=== PATIENT | male | born 1970 | race Caucasian/White ===

== ENCOUNTER 2018-04-18 14:49 | Outpatient (CLI) | payer OTHER | END 2018-04-18 14:50 | disposition home or self-care (01) | LOC: SC 14:49 | PROVIDERS: ATTEND Internal Medicine Pulmonary Disease | DX: G47.33 Obstructive sleep apnea (adult) (pediatric) (principal) | CPT/HCPCS: 99203; 99212 ==

== ENCOUNTER 2018-06-23 12:46 | Outpatient (CLI) | payer OTHER | END 2018-06-23 12:47 | disposition home or self-care (01) | LOC: SC 12:46 | PROVIDERS: ATTEND Nurse Practitioner Family | DX: G47.33 Obstructive sleep apnea (adult) (pediatric) (principal) | CPT/HCPCS: 99212; 99214 ==

== ENCOUNTER 2018-08-04 14:35 | Outpatient (CLI) | payer OTHER ==
--- NOTE | 2018-08-08 16:23 | PROCEDURE REPORT ---
Hospitalist Procedure Note - Procedure Note Procedure Note: August 04, 2018 Procedure: Roverto protocol stress test Indication: Assessment of chest pain Clinical history: morbidly obese 48-year-old [place] male whose risk factors for heart disease include family history and male sex with borderline hyperlipidemia. He is an ex-smoker who smoked 20 years and quit November 2017. He weighs 255 pounds and is 5 foot 10 inches tall. He is on no medications. He has been having atypical chest pain that is central, substernal, but not associated with rest or stress particularly. There is no nausea, diaphoresis, palpitations, pedal edema, or change in exercise endurance. He walks 30 minutes a night on a treadmill. Procedure: After signing informed consent, the patient performed an exercise treadmill study using a Roverto protocol completing 10 minutes and a estimated workload of 11.79 metabolic equivalents. The test was terminated due to completion of goals and fatigue. He had no chest pain during the stress test. The heart rate was 90 bpm at baseline and increased to 176 at peak exercise which was 101% of maximum predicted heart rate. Resting blood pressure was 128/76 and increased to 188/80 during max stress which was a normal hypertensive response. The patient did not develop any symptoms other than shortness of breath, mild leg fatigue. The resting EKG demonstrates normal sinus rhythm with nonspecific ST-T wave changes in inferolateral leads with T wave flattening. During stress there were no diagnostic criteria met for ischemia. At rest there was no ectopy. Recovery was slightly delayed. At 2 minutes and 15 seconds he was still 132 heartbeats. At 4 minutes and 59 seconds he was down to 113. And at 6 minutes 59 seconds he was still mildly elevated at 113 with a blood pressure 162/70. Findings: The overall quality of the study was good. Mild baseline artifact was present on EKG during stress. Good effort was made by the patient. Impression: No diagnostic criteria for ischemia was met during this treadmill study of a patient who is able to achieve 10 minutes on a Roverto protocol.
== END 2018-08-04 14:36 | disposition home or self-care (01) ==
LOC: DI 14:35
PROVIDERS: ATTEND Physician Assistant
DX: R07.9 Chest pain, unspecified (principal); E66.01 Morbid (severe) obesity due to excess calories; Z87.891 Personal history of nicotine dependence
CPT/HCPCS: 93017

== ENCOUNTER 2021-08-19 15:31 | Outpatient (CLI) | payer OTHER ==
--- NOTE | 2021-08-19 16:11 | SLEEP CARE CONSULTATION ---
Information from patient questionnaire entered by Benjamin Talley MA. I have reviewed and concur with the information entered by Benjamin Talley MA. This document represents the service I personally performed and the decisions made by , Umu Jarrett ARNP. History of Present Illness Service Date and Time: 08/19/2021 1531 Reason for Visit: New patient (LAST SEEN 06/2018), Previously diagnosed sleep apnea, sleep apnea on CPAP therapy, Re-establish care Chief Complaint: reports: Unrefreshed sleep, Snoring, Observed pauses in breathing, Fatigue, Frequent awakenings at night, Other (update supplies) Date of Onset: 20+ years Usual bedtime: 9 PM Time it takes to fall asleep: 30 mins to 1 hr Snores at night: Yes Observed to quit breathing while asleep: Yes Sleeps alone due to snoring: No Number of times waking at night: 2-3 times Reasons for waking at night: reports: Snoring, Gasping for air, Other ( waking him up due to stopping breathing) Toss, Turn, or Twitch while sleeping: Yes Recalls having dreams: No Feels refreshed in the morning: No Morning headache: No Sleepy or fatigued during the day: Yes Ever fallen asleep while driving: No Takes day naps: No Dreams during day naps: No Prior sleep studies: Yes Year and Where: 2010 [facility] Additional HPI information: FACUNDO MORGAN was previously diagnosed to have mild, AHI 12.8, obstructive sleep apnea-hypopnea syndrome and returns today to re-establish care for CPAP therapy. He stopped using his device in February 2021 due to the recall on his CPAP machine. - Parasomnia Symptoms Ever been unable to move upon waking from sleep: No Walks in sleep: No Talks in sleep: Yes Ever acted out dreams in sleep: Yes Ever felt weak in the knees when startled or emotional: No Bothered by creepy, crawly, restless sensations in legs: No Problems with memory or concentration: Yes CPAP Compliance Data - Data Reviewed with Patient Average duration of nightly device use: 6 hours 22 mins Compliance rate %: 12.8 Current pressure setting (cmH2O): 5-12 Average residual AHI: 5.8 Central apnea: 0.6 Obstructive apnea: 1.5 Hypopnea: 3.7 Average large leak: 35 mins 36 secs Compliance data discussion: He was using [facility] but has been transferred to [facility]. He uses a full face mask. Subjective Initial [place] Sleepiness Scale score: 14 (2021) Past Medical History Past Medical History: reports: GERD, Other (high triglycerides ) Social History The patient's occupation is a RE. Patient is and lives in [place]. Have you smoked in the past 12 months: No Cigarettes per day (20/pack): 20 Years of smokin Quit date: 5 years ago Smoking Pack Years: 23.0 Alcohol use: Yes Alcohol amount and frequency: very little; 5 drinks a year Caffeine use: Yes Caffeine amount and frequency: rare, 1 soda a week Family History Family history of sleep disordered breathing: Yes Family Hx Sleep Apnea: Father: Snoring, Sleep apnea - Treated, Sibling: Snoring, Grandparent: Snoring Allergies and Home Medications Drug allergies reviewed: Yes (NKDA) Home medication list reviewed: Yes Allergy and home medication list: Omeprazole Generic for Lipitor Review of Systems Gastrointestinal: reports: heartburn Physical Exam Vital signs obtained and entered by: Guy TALLEY CMA AAMA Cuff size: wrist Heart Rate: 59 O2 Saturation: 98 (WITH PAPER MASK) Height: 5 ft 10 in Weight: 250 lb (WITH CLOTES) Body Mass Index: 35.9 BMI Classification: Obese Heart: regular rate and rhythm Lungs: clear bilaterally Impression and Plan 1. Obstructive Sleep Apnea-Hypopnea Syndrome, mild, with poor treatment compliance and fair apnea control with minimal elevation of residual AHI. On CPAP therapy, the patient has better sleep quality and is more rested overall. He has not been able to use his device due to the recall. He really wants to get back on CPAP therapy. Patient has already registered their device for the recall but he has not yet received parts to fix his device or a new device. Patient denies any black particles seen in machine or hoses, any unusual odors coming from device. Patient has not experienced any physical symptoms such as upper airway irritation, headache, skin or eye irritation, asthma, nausea/vomiting, difficulty breathing or chest pain. Patient has [employer] insurance who will replace recalled CPAP devices. I will write order for a new device and then follow up with patient one month after he obtains his new device. Patient voiced understanding and agreement with plan. Patient's apnea severity and rationale for treatment to reduce apnea, improve sleep quality and reduce cardiovascular and cerebrovascular events was reviewed. Patient was encouraged to lose weight for their overall health and to reduce apneas. * Continue auto CPAP pressure at 5-12 cmH2O * Update device on the recall * Update supplies as needed * Notify me if snoring with mask or feeling that the pressure is too much or too little * Attempt to lose weight * Call this office if any problems using CPAP * Return for follow up one month after obtaining new device, or sooner if concerns arise Counseling Topics: Sleeping position, Weight loss health impact Visit Type: In Office Time Spent with Patient (minutes): 32 Provider Statement: I spent 100% of the Face to Face Visit with the patient with greater than 50% spent counseling the patient and coordination of care.
== END 2021-08-19 15:32 | disposition home or self-care (01) ==
LOC: SC 15:31
PROVIDERS: ATTEND Nurse Practitioner Family
DX: G47.33 Obstructive sleep apnea (adult) (pediatric) (principal); E66.9 Obesity, unspecified; Z68.35 Body mass index [BMI] 35.0-35.9, adult
CPT/HCPCS: 99203; 99212

== ENCOUNTER 2023-09-30 07:07 | Emergency (ER) | payer OTHER ==
[2023-09-30] MEDS: ONDANSETRON 4 MG/2 ML VIAL IVP STA (07:36)
[2023-09-30] MEDS: HYDROmorphone 1 MG/ML CARPUJECT IVP STA (07:36)
--- NOTE | 2023-09-30 07:43 | ED Physician Documentation ---
PD HPI ABD PAIN - Stated complaint Stated Complaint: ABD PX - Chief complaint Chief Complaint: Abd Pain - Additional information Additional information: Patient is a 53-year-old male with a prior gastric bypass surgery and history of kidney stones presenting for evaluation of right lower quadrant right flank pain starting suddenly at 5 AM. Pain is sharp with associated nausea. Denies hematuria but has reported a darker colored urine and feeling the need to urinate often with only small amounts at a time. Also having some loose stools this morning. No fevers, chest pain, shortness of air. Does not take any regular medications. Review of Systems Constitutional: denies: Fever Cardiac: denies: Chest pain / pressure Respiratory: denies: Dyspnea GI: reports: Abdominal Pain, Nausea. denies: Bloody / black stool : reports: Frequency. denies: Hematuria PD PAST MEDICAL HISTORY - Past Medical History Past Medical History: Yes - Past Surgical History Past Surgical History: Yes - Present Medications Home Medications: Ambulatory Orders Medication Instructions Recorded Confirmed HYDROcod/ACETAM 5/325 [Anderson 5/325] 1 tablet PO Q6H PRN #10 tablet 09/30/23 Ondansetron Odt [Zofran] 4 mg TL Q6H PRN #10 tablet 09/30/23 - Allergies Allergies/Adverse Reactions: Allergies Allergy/AdvReac Type Severity Reaction Status Date / Time NSAIDS (Non-Steroidal Allergy Unknown Verified 09/30/23 07:27 Anti-Inflamma - Social History Does the pt smoke?: No Smoking Status: Never smoker Does the pt drink ETOH?: No Does the pt have substance abuse?: No - Immunizations Immunizations are current?: Yes - POLST Patient has POLST: No PD ED PE NORMAL - General General: Alert and oriented X 3, No acute distress, Well developed/nourished - HEENT HEENT: Atraumatic, Moist mucous membranes, Pharynx benign - Neck Neck: Supple, no meningeal sign - Cardiac Cardiac: RRR, Strong equal pulses - Respiratory Respiratory: No respiratory distress, Clear bilaterally - Abdomen Abdomen: Normal bowel sounds, Soft, Non distended, Other (No reproducible tenderness, no mass, no guarding) - Back Back: Other (Right CVA tenderness) - Derm Derm: Warm and dry - Neuro Neuro: Normal speech Results - Vitals Vitals: Vital Signs - 24 hr 09/30/23 09/30/23 09/30/23 07:16 08:17 10:02 Temperature 36.0 C L 36.1 C L Heart Rate 82 51 L 56 L Respiratory 20 12 18 Rate Blood Pressure 162/97 H 114/77 117/73 O2 Saturation 100 98 96 If not protocol 2 : Oxygen Flow, liters/minute Oxygen O2 Source Room air - Labs Labs: Laboratory Tests 09/30/23 09/30/23 09/30/23 07:30 08:00 08:00 WBC 12.6 H RBC 4.72 Hgb 14.2 Hct 43.4 MCV 91.9 MCH 30.1 MCHC 32.7 RDW 12.1 Plt Count 226 MPV 10.3 Neut # (Auto) 10.3 H Lymph # (Auto) 1.6 [place] # (Auto) 0.6 Eos # (Auto) 0.0 Baso # (Auto) 0.0 Absolute Nucleated RBC 0.00 Nucleated RBC % 0.0 Sodium 139 Potassium 3.9 Chloride 103 Carbon Dioxide 28 Anion Gap 8.0 BUN 19 Creatinine 0.9 Estimated GFR (MDRD) 89 Glucose 117 H Calcium 9.8 Total Bilirubin 0.5 AST 22 ALT 21 Alkaline Phosphatase 94 Total Protein 6.9 Albumin 4.6 Globulin 2.3 Albumin/Globulin Ratio 2.0 Lipase < 10 L Urine Color DARK YELLOW Urine Clarity CLEAR Urine pH 5.5 Ur Specific [place] >=1.030 H Urine Protein 30 H Urine Glucose (UA) NEGATIVE Urine Ketones NEGATIVE Urine Occult Blood LARGE H Urine Nitrite NEGATIVE Urine Bilirubin SMALL H Urine Urobilinogen 1 (NORMAL) Ur Leukocyte Esterase NEGATIVE Urine RBC 0-5 Urine WBC 0-3 Ur Squamous Epith Cells FEW Squamous Urine Crystals 0-2 Calcium Oxalate Urine Bacteria Few Urine Casts 0-2 Fine Granular Ur Microscopic Review INDICATED Urine Culture Comments NOT INDICATED PD Medical Decision Making - ED course Complexity details: reviewed results, re-evaluated patient, d/w patient, d/w family ED course: Patient is a 53-year-old male with right lower abdominal pain radiating to the right flank feeling similar to prior kidney stones. CBC, chemistries and urinalysis were obtained and reviewed. WBC 12.6. Patient does not appear septic. CT of the abdomen pelvis was reviewed and there is a 2 to 3 mm stone in the bladder which appears to be a recently passed right ureter stone. Patient is feeling better here after IV fluids, Dilaudid.Patient counseled regarding evaluation, diagnosis and concerning symptoms to return for. Departure - Departure Disposition: 01 Home, Self Care Clinical Impression: Kidney stone Condition: Stable Instructions: ED Stone Renal Passed Prescriptions: HYDROcod/ACETAM 5/325 [Anderson 5/325] 1 tablet PO Q6H PRN #10 tablet PRN Reason: Pain Ondansetron Odt [Zofran] 4 mg TL Q6H PRN #10 tablet PRN Reason: Nausea / Vomiting Comments: Your CT scan shows that you have recently passed a 2 to 3 mm stone from the right kidney. It is in the bladder. Your symptoms should get much better now that the stone is passed out of the ureter which is the tube that connects the kidney to the bladder. I have sent a small amount of narcotic pain medication and antinausea medication to [facility] pharmacy on . Return to the emergency department with any worsening symptoms. I am prescribing a short course of narcotic pain medication for you. These are potentially dangerous and addictive medications that should be used carefully. These medications may constipate you. Take an [id number]-vnfwvrd stool softener (docusate) twice daily with plenty of water while taking these medications. If you go 24 hours without a bowel movement, take [id number] miralax, per package instructions. Do not drink or drive while taking these medications. If you received narcotic or sedating medications while in the emergency department, do not drive for 24 hours. Store this medication in a safe, secure place and out of reach of children. It is a violation of federal law to give or sell this medication to another person or to use in a manner other than prescribed. The ED will not refill narcotic prescriptions, including prescriptions lost or stolen. To dispose of unwanted medications: 1. [facility] [address] in [place] has a medication drop box. They accept prescription medications (in pill form) Wednesday through Wednesday 9:00 a.m. to 5:00 p.m. 2. [facility] accepts prescription medications (in pill form only) for disposal year round. Call for more info rmation. 3. Contact the [facility] for the next [facility] sponsored prescription drug collection event. , [phone], or [phone]; Note that many narcotic pain relievers also contain Tylenol/acetaminophen. Please ensure that your total dose of acetaminophen from all sources does not exceed 3 g (3000 mg) per day. IMPRESSION: 1. Finding is suggestive of a passed right renal stone with mild residual right- sided hydronephrosis or hydroureter and mild right perinephric fat stranding. No left-sided hydronephrosis. Normal- appearing urinary bladder. 2. No bowel obstruction or abnormal bowel wall thickening. Normal appendix. No free fluid of free air. Forms: PCP List Discharge Date/Time: 09/30/23 10:27
[2023-09-30 07:45] LABS: BILIRUBIN,URINE SMALL (NEGATIVE); GLUCOSE, URINE (UA) NEGATIVE (NEGATIVE); KETONES,URINE (UA) NEGATIVE (NEGATIVE); LEUKOCYTE ESTERASE, URINE NEGATIVE (NEGATIVE); NITRITE,URINE NEGATIVE (NEGATIVE); OCCULT BLOOD,URINE LARGE (NEGATIVE); PH,URINE 5.5 PH (5.0-7.5); PROTEIN,URINE 30 mg/dL (NEGATIVE); UROBILINOGEN,URINE 1 (NORMAL) E.U./dL (NORMAL)
[2023-09-30 07:47] LABS: CLARITY,URINE CLEAR (CLEAR)
[2023-09-30 07:54] LABS: BACTERIA,URINE Few /HPF (None Seen); CASTS, URINE 0-2 Fine Granular /LPF; CRYSTALS,URINE 0-2 Calcium Oxalate /LPF; RBC,URINE 0-5 /HPF (0-5); SQUAMOUS EPITHELIAL CELL,UR FEW Squamous (<= Few)
[2023-09-30 07:55] LABS: WBC,URINE 0-3 /HPF (0-3)
[2023-09-30 08:13] LABS: BASOPHILS % (AUTO) 0.3 %; EOSINOPHILS % (AUTO) 0.3 %; HCT - HEMATOCRIT 43.4 % (42.0-52.0); HGB - HEMOGLOBIN 14.2 g/dL (14.0-18.0); LYMPHOCYTES # (AUTO) 1.6 10^3/uL (1.5-3.5); LYMPHOCYTES % (AUTO) 12.6 %; MEAN CORPUSCULAR HEMOGLOBIN 30.1 pg (27.0-31.0); MEAN CORPUSCULAR HGB CONC 32.7 g/dL (32.0-36.0); MEAN CORPUSCULAR VOLUME 91.9 fL (80.0-94.0); MEAN PLATELET VOLUME 10.3 fL (7.4-11.4); MONOCYTES # (AUTO) 0.6 10^3/uL (0.0-1.0); MONOCYTES % (AUTO) 4.6 %; NEUTROPHILS # (AUTO) 10.3 10^3/uL (1.5-6.6); NEUTROPHILS % (AUTO) 81.8 %; PLT - PLATELET COUNT 226 10^3/uL (130-450); RED BLOOD COUNT 4.72 10^6/uL (4.70-6.10); RED CELL DISTRIBUTION WIDTH 12.1 % (12.0-15.0); WHITE BLOOD COUNT 12.6 x10^3/uL (4.8-10.8)
[2023-09-30 08:32] LABS: ALBUMIN 4.6 g/dL (3.2-5.5); ALKALINE PHOSPHATASE 94 IU/L (42-121); ALT ALANINE AMINOTRANSFERASE 21 IU/L (10-60); AST ASPARTATE AMINOTRANSFERASE 22 IU/L (10-42); BILIRUBIN,TOTAL 0.5 mg/dL (0.2-1.0); BUN - BLOOD UREA NITROGEN 19 mg/dL (6-20); CALCIUM 9.8 mg/dL (8.5-10.3); CARBON DIOXIDE - CO2 28 mmol/L (21-32); CHLORIDE 103 mmol/L (101-111); CREATININE 0.9 mg/dL (0.6-1.3); GFR - MDRD 89 (>89); GLUCOSE 117 mg/dL (74-104); POTASSIUM 3.9 mmol/L (3.5-4.5); SODIUM 139 mmol/L (135-145); TOTAL PROTEIN 6.9 g/dL (6.4-8.9)
[2023-09-30 08:38] LABS: LIPASE < 10 U/L (11-82)
--- NOTE | 2023-09-30 09:21 | CT Report ---
PROCEDURE: Abdomen/Pelvis WO INDICATIONS: R flank to RLQ pain TECHNIQUE: A CT scan of the abdomen and pelvis was performed without the use of intravenous contrast. Images we re recorded and evaluated at appropriate window settings. Reformats: coronal and sagittal. For radiat ion dose reduction, the following was used: automated exposure control, adjustment of mA and/or kV ac cording to patient size. COMPARISON: None. FINDINGS: Image quality: Diagnostic. Lower chest: Bibasilar dependent atelectasis are seen posteriorly. Heart size is normal, no pericardi al effusion. Liver: No contour-deforming mass. Gallbladder and biliary tree: No radiopaque stones or wall thickening. No biliary dilation. Spleen: No splenomegaly. Pancreas: No pancreatic ductal dilation. Adrenals: No adrenal nodule. Kidneys and ureters: There is mild right-sided hydronephrosis and hydroureter extending to the level of right UVJ. Nonspecific mild right perinephric fat stranding is seen. No left-sided hydronephrosis. No renal cystic lesion which requires follow up. No solid mass. Stomach, bowel and peritoneum: No bowel distension. No pathologic free fluid. Normal appendix is note d in right lower quadrant. No area of abnormal bowel wall thickening. No abscess collection. No perit vaughan free air. Lymph nodes: No central or retroperitoneal adenopathy. Vessels: No infrarenal aortic aneurysm. PELVIS Reproductive organs: Unremarkable. Bladder: No wall thickness, accounting for underdistention. There is a 2 to 3 mm stone in dependent p ortion of urinary bladder series 2 image 135. Pelvic lymph nodes: No pelvic adenopathy by size criteria. Bones: No aggressive osseous abnormality. Other: No significant ventral or inguinal hernia. IMPRESSION: 1. Finding is suggestive of a passed right renal stone with mild residual right-sided hydronephrosis or hydroureter and mild right perinephric fat stranding. No left-sided hydronephrosis. Normal-appeari ng urinary bladder. 2. No bowel obstruction or abnormal bowel wall thickening. Normal appendix. No free fluid of free air . Reviewed by: Mahin Avalos MD on 09/30/2023 9:20 AM PDT Approved by: Mahin Avalos MD on 09/30/2023 9:20 AM PDT Station ID: [id number]
[2023-09-30 10:04] VITALS: BP 117/73; O2SAT 96
== END 2023-09-30 10:27 | disposition home or self-care (01) ==
LOC: ED 07:07
DX: N20.0 Calculus of kidney (principal); Z98.84 Bariatric surgery status; Z87.442 Personal history of urinary calculi
CPT/HCPCS: 36415; 74176; 80053; 81001; 83690; 85025; 96374; 96375; 99284; J1170; 81003; 87086